=== PATIENT | male | born 1975 | race Caucasian/White ===

== ENCOUNTER 2017-04-16 22:02 | Emergency (ER) | payer OTHER ==
[~2017-04-16] VITALS: Ht 182.9 cm; Wt 84.0 kg
[~2017-04-16 22:02] MED LIST: ACET-2119 PO
[2017-04-16] MEDS ORDERED: normal saline 1000ML IV soln IVB ONE (22:40)
[2017-04-17 00:56] VITALS: BP 106/83
== END 2017-04-17 00:19 | disposition home or self-care (01) ==
LOC: ER 22:03
DX: G97.1 Other reaction to spinal and lumbar puncture (principal)
CPT/HCPCS: 62273; 96360; 99284; J7030

== ENCOUNTER 2023-09-04 15:53 | Emergency (ER) | payer BC, OTHER ==
[~2023-09-04] VITALS: Ht 182.9 cm; Wt 94.3 kg
[2023-09-04] MEDS: TETanus/Pertussis (Acell)/Diphther VAC/PF (Tdap-Adult) 0.5ml syringe IMVAC ONE (17:04)
[2023-09-04 17:40] VITALS: BP 123/85; PULSE 71; RESP 15; O2SAT 98
[2023-09-04 17:57] VITALS: TEMP 98.6
== END 2023-09-04 17:59 | disposition home or self-care (01) ==
LOC: ER 15:54
DX: S00.01XA Abrasion of scalp, initial encounter (principal); M54.2 Cervicalgia; Z88.2 Allergy status to sulfonamides; W19.XXXA Unspecified fall, initial encounter; Y93.89 Activity, other specified; Y92.89 Other specified places as the place of occurrence of the external cause; Y99.8 Other external cause status
CPT/HCPCS: 70450; 72125; 90471; 90715; 99285

== ENCOUNTER 2024-11-12 10:33 | Outpatient (CLI) | payer OTHER ==
--- NOTE | 2024-11-12 12:29 | RADIOLOGY REPORT ---
CLINICAL INDICATION: OTH TEAR OF LAT MENSC, CURRENT INJURY, LEFT KNEE, SUBS TECHNIQUE: Multiplanar, multisequence MRI of the left knee was performed without contrast. Contrast: None. COMPARISON: None FINDINGS: Joint space and synovium: There is small knee joint effusion. Trace Carvajal's cyst. There is fluid al tarik the medial gastrocnemius fascia suggesting rupture of the Carvajal's cyst. Bones and articular cartilage: There is no evidence of acute fracture or bone marrow edema. The ali gnment is normal. The articular cartilage is preserved in the patellofemoral medial and lateral fem orotibial compartment. Menisci: There is a horizontal tear in the posterior horn body of the medial meniscus. The lateral meniscus is intact. Tendons and ligaments: The tendons in the posterior knee are intact. The extensor mechanism is inta ct. The anterior cruciate ligament is intact. The posterior cruciate ligament is intact. The l ateral collateral ligament stabilizing complex is intact. There are bone anchors of the medial femor al condyle of the proximal tibia which may reflect prior MCL repair. The proximal medial collateral ligament is thickened and ill-defined consistent with a chronic tear. Muscles: Regional muscles are preserved in bulk and signal characteristics. Other: None. IMPRESSION: 1. MCL tear status post repair. 2. Horizontal tear of the posterior horn body of the medial meniscus. 3. Ruptured Carvajal's cyst.
== END 2024-11-12 23:59 | disposition home or self-care (01) ==
LOC: MRI 10:33
PROVIDERS: ATTEND Student in an Organized Health Care Education/Training Program
DX: S83.242D Other tear of medial meniscus, current injury, left knee, subsequent encounter (principal); S83.412D Sprain of medial collateral ligament of left knee, subsequent encounter; S83.282D Other tear of lateral meniscus, current injury, left knee, subsequent encounter; M25.462 Effusion, left knee; M66.0 Rupture of popliteal cyst; X58.XXXD Exposure to other specified factors, subsequent encounter
CPT/HCPCS: 73721